=== PATIENT | female | born 1980 | race American Indian/Alaskan Native ===

== ENCOUNTER 2016-11-05 22:22 | Emergency (ER) | payer MEDICAID ==
[2016-11-05 23:30] LABS: Basophils % (Auto) 0.2 % (0.0-1.8); Eosinophils % (Auto) 1.1 % (0.0-4.3); Hemoglobin 10.9 gm/dl (10.1-14.3); White Blood Count 12.1 K/mm3 (4.5-11.0)
[2016-11-05 23:37] LABS: Mean Corpuscular HGB Conc 32 % (30-34); Mean Corpuscular Hemoglobin 23 pg (28-32); Mean Corpuscular Volume 73 fl (79-97); Platelet Count 300 K/mm3 (140-440); Red Blood Count 4.65 M/mm3 (3.65-5.03); Red Cell Distribution Width 16.9 % (13.2-15.2)
[2016-11-06 00:09] LABS: Anion Gap 17 mmol/L; Blood Urea Nitrogen 16 mg/dL (7-17); Calcium 9.2 mg/dL (8.4-10.2); Carbon Dioxide 27 mmol/L (22-30); Chloride 100.1 mmol/L (98-107); Glucose 89 mg/dL (65-100); Potassium 3.8 mmol/L (3.6-5.0); Sodium 140 mmol/L (137-145)
[2016-11-06 05:51] VITALS: BP 118/79
--- NOTE | 2016-11-06 06:42 | ED Elopement Review ---
ED Pt Elopement review - Results review Lab results: Laboratory Tests 11/05/16 11/05/16 11/06/16 23:06 23:06 02:29 WBC 12.1 H RBC 4.65 Hgb 10.9 Hct 34.0 MCV 73 L MCH 23 L MCHC 32 RDW 16.9 H Plt Count 300 Lymph % (Auto) 29.3 [place]on % (Auto) 6.1 Eos % (Auto) 1.1 Baso % (Auto) 0.2 Lymph # 3.6 Weston # 0.7 Eos # 0.1 Baso # 0.0 Seg Neutrophils % 63.3 Seg Neutrophils # 7.7 Sodium 140 Potassium 3.8 Chloride 100.1 Carbon Dioxide 27 Anion Gap 17 BUN 16 Creatinine 0.8 Estimated GFR > 60 BUN/Creatinine Ratio 20.00 Glucose 89 Calcium 9.2 Troponin T < 0.010 < 0.010 11/06/16 05:18 WBC RBC Hgb Hct MCV MCH MCHC RDW Plt Count Lymph % (Auto) Weston % (Auto) Eos % (Auto) Baso % (Auto) Lymph # Weston # Eos # Baso # Seg Neutrophils % Seg Neutrophils # Sodium Potassium Chloride Carbon Dioxide Anion Gap BUN Creatinine Estimated GFR BUN/Creatinine Ratio Glucose Calcium Troponin T < 0.010 - Call Back decision Pt Call Back Decision: Call pt to return to ED [facility]
== END 2016-11-06 06:30 | disposition left against medical advice (07) ==
LOC: ED 22:22
DX: R06.02 Shortness of breath (principal); R07.89 Other chest pain; R05 Cough; F41.9 Anxiety disorder, unspecified; Z88.1 Allergy status to other antibiotic agents; Z53.21 Procedure and treatment not carried out due to patient leaving prior to being seen by health care provider
CPT/HCPCS: 36415; 80048; 84484; 85025; 93005; 93010